=== PATIENT | male | born 1965 | race Caucasian/White ===

== ENCOUNTER → 2016-06-09 | Outpatient (CLI) | payer BC | END | disposition home or self-care (01) | LOC: GMAB 10:56 | PROVIDERS: ATTEND Family Medicine | DX: Z00.00 Encounter for general adult medical examination without abnormal findings (principal); E11.9 Type 2 diabetes mellitus without complications ==

== ENCOUNTER → 2016-12-09 | Outpatient (CLI) | payer BC ==
--- NOTE | 2016-12-10 14:51 | MRI ---
Study: MRI of the Left Shoulder. Indication: SHOULDER PAIN Technique: Multiplanar, multi sequence MRI of the left shoulder was obtained without intravenous contrast. Comparison: None. FINDINGS: Moderate AC joint osteoarthritis. Type II acromion with mild lateral downsloping. Trace subacromial/subdeltoid bursal fluid. Supraspinatus and infraspinatus tendinosis with full-thickness tearing anterior supraspinatus tendon insertion measuring 14 mm AP by 12 mm transverse. High grade articular tearing throughout the remainder of the supraspinatus tendon which is partially filled with granulation tissue. Medial myotendinous retraction by approximately 14 mm. Subscapularis tendinosis with intermediate grade interstitial tearing superiorly. Teres minor tendon intact. Rotator cuff musculature normal without atrophy, fatty infiltration, or intramuscular edema. Intracapsular long head biceps tendinosis. Circumferential labral truncation noted. Slight posterior subluxation humeral head in relation to glenoid. Moderate size joint effusion. No acute fracture or advanced glenohumeral joint osteoarthritis. IMPRESSION: Full-thickness tearing anterior supraspinatus tendon insertion with high-grade articular tearing of the posterior half of the tendon. Subscapularis infraspinatus tendinosis with intermediate grade interstitial tearing superior subscapularis tendon. Intracapsular long head biceps tendinosis. Circumferential labral truncation noted. Moderate glenohumeral joint effusion. Moderate AC joint osteoarthritis. Electronically signed by: Juanpablo Michaels MD 12/10/2016 2:50 PM CDT
== END ==
LOC: MRI 13:32
PROVIDERS: ATTEND Family Medicine
DX: M75.102 Unspecified rotator cuff tear or rupture of left shoulder, not specified as traumatic (principal); M19.112 Post-traumatic osteoarthritis, left shoulder; M25.412 Effusion, left shoulder

== ENCOUNTER → 2019-10-05 | Outpatient (CLI) | payer BC | LOC: GMAE 16:37 | PROVIDERS: ATTEND Family Medicine | DX: R10.13 Epigastric pain (principal) ==

== ENCOUNTER → 2019-10-07 | Outpatient (CLI) | payer BC ==
--- NOTE | 2019-10-07 13:13 | US ---
EXAM DESCRIPTION: Gall Bladder: ULTRASOUND. CLINICAL HISTORY: EPIGASTRIC PAIN COMPARISON: None. TECHNIQUE: Transabdominal scanning: Hensley-scale and Doppler modes. FINDINGS: Gallbladder: normal size, shape, echogenicity; no intraluminal stones or sludge. No fluid around the gallbladder. No wall thickening. 2.3 mm. Non-tender with transducer pressure. Common bile duct: caliber 3.3 mm within normal limits. Liver: Increased echogenicity; limited visualization of the posterior liver. Contour liver capsule smooth where seen. No fluid around the liver. Intrahepatic biliary ducts normal caliber. Doppler hepatopedal flow portal vein.. Long axis right lobe 16.3 cm. Pancreas: normal size Normal echogenicity. Duct not seen.. Tail partially obscured by intestinal gas. Aorta: 1.9 cm normal caliber. Right kidney: long axis is 12.7 cm. Normal cortical thickness and echogenicity. No echogenic stones or hydronephrosis.. IMPRESSION: 1. Fatty liver but not enlarged. Physiologic vascularity and normal caliber of the ducts. Pancreas grossly normal. Tail partially obscured by intestinal gas. 2. Normal ultrasound gallbladder. Common bile duct is not dilated. 3. Normal caliber of the proximal abdominal aorta. Right kidney is unremarkable. Electronically signed by: Rowdy Christy MD 10/07/2019 1:12 PM CDT
== END ==
LOC: US 07:46
PROVIDERS: ATTEND Family Medicine
DX: R10.13 Epigastric pain (principal); K76.0 Fatty (change of) liver, not elsewhere classified; R14.3 Flatulence